=== PATIENT | female | born 1990 | race African-American/Black ===

== ENCOUNTER 2018-07-18 12:21 | Emergency (ER) | payer OTHER ==
[~2018-07-18] VITALS: Ht 170.2 cm; Wt 59.0 kg
[~2018-07-18 12:21] MED LIST: FLAGYL500 MG PO
[2018-07-18 12:25] VITALS: BP 130/48
[2018-07-18] MEDS ORDERED: PENICILLIN V P500 MG PO (12:39)
[2018-07-18] MEDS ORDERED: ULTRAM 50MG TAB50 MG PO (12:39)
[2018-07-18] MEDS ORDERED: IBUPROFEN 600600 M1 PO (12:39)
== END 2018-07-18 12:53 | disposition home or self-care (01) ==
LOC: ER 12:21
DX: K05.10 Chronic gingivitis, plaque induced (principal); K01.1 Impacted teeth

== ENCOUNTER 2018-10-12 11:01 | Emergency (ER) | payer OTHER ==
[~2018-10-12] VITALS: Ht 167.6 cm; Wt 54.4 kg
[~2018-10-12 11:01] MED LIST changes: +IBUPROFEN 600600 M1 PO; +PENICILLIN V P500 MG PO; +ULTRAM 50MG TAB50 MG PO
[2018-10-12 11:21] LABS: URINE BILIRUBIN NEGATIVE (Negative); URINE BLOOD NEGATIVE (Negative); URINE CLARITY CLEAR; URINE COLOR YELLOW; URINE GLUCOSE-RANDOM* NEGATIVE (Negative); URINE KETONES NEGATIVE (Negative); URINE LEUKOCYTES-REFLEX TRACE (Negative); URINE NITRITE-REFLEX NEGATIVE (Negative); URINE PROTEIN (DIPSTICK) NEGATIVE (Negative); URINE UROBILINOGEN 0.2 E.U./dl (0.2-1.0)
[2018-10-12 13:03] LABS: ABSOLUTE NEUTROPHILS 3.2 thou/uL (1.4-8.2); BASOPHILS 0.9 % (0.0-2.0); EOSINOPHILS 1.1 % (0.0-3.0); HEMATOCRIT 36.5 % (37.0-47.0); HEMOGLOBIN 11.7 gm/dL (12.0-15.0); LYMPHOCYTES 27.1 % (24.0-44.0); MCH 23.9 pg (26.0-34.0); MCHC 32.2 g/dL (28.0-37.0); MCV 74.2 fL (80.0-100.0); MONOCYTES 8.9 % (1.0-8.0); PLATELET COUNT 186 thou/uL (150-400); RBC 4.92 mil/uL (4.20-5.00); RDW 18.4 % (10.5-14.5); WBC 5.2 thou/uL (4.0-11.0)
[2018-10-12 13:11] LABS: CALCIUM 8.7 mg/dL (8.5-10.1); CREATININE 0.8 mg/dL (0.6-1.0); POTASSIUM 3.4 mmol/L (3.5-5.1)
[2018-10-12] MEDS ORDERED: PHENERGAN 25 MG25 M1 PO (13:31)
[2018-10-12 13:33] LABS: ANISOCYTOSIS SLIGHT; MICROCYTES 1+; POIKILOCYTOSIS SLIGHT
[2018-10-12 13:34] LABS: LARGE PLATELETS OCCASIONAL; OVALOCYTES OCCASIONAL
[2018-10-12 14:00] VITALS: BP 118/72
== END 2018-10-12 14:02 | disposition home or self-care (01) ==
LOC: ER 11:01
PROVIDERS: Nurse Practitioner Family
DX: O21.8 Other vomiting complicating pregnancy (principal); O26.891 Other specified pregnancy related conditions, first trimester; R10.9 Unspecified abdominal pain; Z3A.01 Less than 8 weeks gestation of pregnancy

== ENCOUNTER 2018-10-16 08:55 | Emergency (ER) | payer OTHER ==
[~2018-10-16] VITALS: Ht 165.1 cm; Wt 56.2 kg
[~2018-10-16 08:55] MED LIST changes: +PHENERGAN 25 MG25 M1 PO
[2018-10-16 09:18] LABS: URINE BILIRUBIN NEGATIVE (Negative); URINE BLOOD NEGATIVE (Negative); URINE CLARITY CLEAR; URINE COLOR YELLOW; URINE GLUCOSE-RANDOM* NEGATIVE (Negative); URINE KETONES NEGATIVE (Negative); URINE LEUKOCYTES-REFLEX 1+ (Negative); URINE NITRITE-REFLEX NEGATIVE (Negative); URINE PROTEIN (DIPSTICK) NEGATIVE (Negative); URINE UROBILINOGEN 0.2 E.U./dl (0.2-1.0)
[2018-10-16 09:27] LABS: BACTERIA-REFLEX None Seen /HPF (None Seen); CASTS None Seen /LPF (None Seen); CRYSTALS None Seen /LPF (None Seen); MUCUS >6 Heavy strn/LPF (None Seen); SQUAMOUS >10 Many /LPF (0-3); URINE RBC 3-10 Few /HPF (0-2); URINE WBC-REFLEX 0-5 Rare /HPF (0-5)
[2018-10-16 12:34] VITALS: BP 114/68
== END 2018-10-16 12:37 | disposition home or self-care (01) ==
LOC: ER 08:55
PROVIDERS: Emergency Medicine
DX: O23.91 Unspecified genitourinary tract infection in pregnancy, first trimester (principal); A59.00 Urogenital trichomoniasis, unspecified; Z3A.01 Less than 8 weeks gestation of pregnancy